=== PATIENT | male | born 1960 | race Two or more races ===

== ENCOUNTER 2017-03-24 15:21 | Inpatient (IN) | payer MEDICAID ==
[~2017-03-24] VITALS: Ht 167.6 cm; Wt 97.5 kg
--- NOTE | 2017-03-24 15:16 | Emergency Room Report ---
History of Present Illness General Source: Patient, EMS Present Illness HPI Patient presents with dizziness, nausea and protracted vomiting. Ringing in both ears. It started out an hour before calling paramedics. They gave him Zofran on the way in. He still feels nauseated. He also is diaphoretic. EKG was done in the field which showed sinus rhythm with no acute changes. The patient is a history of hypertension and has been noncompliant with his medication. He denies chest pain, fever, cough, dyspnea or rashes. He's never felt this way before. Denies diabetes. No sore throat, or ear pain. No recent head trauma. No ill contacts or recent travel. No alcohol. Allergies: Coded Allergies: No Known Allergies (Unverified , 03/24/17) Patient History Social History: Denies: smoking Social History Narrative Review of Systems All Other Systems: negative except mentioned in HPI Physical Exam Vital Signs Date Time Temp Pulse Resp B/P (MAP) Pulse Ox O2 Delivery O2 Flow Rate FiO2 03/24/17 15:19 83 18 182/100 98 Room Air 03/24/17 16:05 2.0 03/24/17 21:00 21 03/25/17 04:27 97.8 Sp02 EP Interpretation: reviewed, normal General Appearance: well appearing, no apparent distress, GCS 15 Head: normocephalic Eyes: bilateral eye normal inspection, bilateral eye PERRL, bilateral eye abnormal EOM - nystagmus ENT: moist mucus membranes, other - cerumen bilat Neck: supple Respiratory: lungs clear, normal breath sounds Cardiovascular #1: regular rate, rhythm Cardiovascular #2: 2+ radial (R) Gastrointestinal: normal inspection, normal bowel sounds, non tender, no mass, non-distended Musculoskeletal: back normal, gait/station normal, normal range of motion Neurologic: alert, oriented x3, motor strength/tone normal, DTRs symmetric, sensory intact, speech normal, other - F-N nearly normal, unable to ambulate due to vertigo Psychiatric: other - ill Skin: diaphoresis Medical Decision Making Diagnostic Impression: Primary Impression: Vertigo Additional Impressions: Ataxia Vomiting Qualified Codes: R11.14 - Bilious vomiting ER Course The patient presents with dizziness. Differential includes labyrinthitis, vertigo, cerebellar pathology, Mnire's disease amongst others. He appears ill at this time and is diaphoretic. We need to exclude cardiac cause. The patient will be on a cardiac cath lab technologist. Evaluation will be with CT the head, chest x-ray and labs and EKG I. The patient be treated with IV Phenergan, Benadryl and Ativan.(Reglan was ordered but is not available.) Prehospital EKG somewhat re-assuring. EKG without injury/ectopy. CXR unremarkable. Labs with elevated glucose and WBC. CT no bleed. Improved and not vomiting. Attempted to ambulate - unsteady on feet and + Romberg. Admit telemetry Dr. Shaw. Needs continued observation and neurologic evaluation with possible MRI. Laboratory Tests Test 03/24/17 16:25 White Blood Count 11.5 K/UL (4.8-10.8) H Red Blood Count 5.09 M/UL (4.70-6.10) Hemoglobin 14.4 G/DL (14.2-18.0) Hematocrit 44.7 % (42.0-52.0) Mean Corpuscular Volume 88 FL (80-99) Mean Corpuscular Hemoglobin 28.2 PG (27.0-31.0) Mean Corpuscular Hemoglobin Concent 32.1 G/DL (32.0-36.0) Red Cell Distribution Width 11.3 % (11.6-14.8) L Platelet Count 237 K/UL (150-450) Mean Platelet Volume 8.9 FL (6.5-10.1) Neutrophils (%) (Auto) 80.3 % (45.0-75.0) H Lymphocytes (%) (Auto) 15.4 % (20.0-45.0) L Monocytes (%) (Auto) 3.3 % (1.0-10.0) Eosinophils (%) (Auto) 0.2 % (0.0-3.0) Basophils (%) (Auto) 0.8 % (0.0-2.0) Prothrombin Time 9.6 SEC (9.30-11.50) Prothrombin Time INR 0.9 (0.9-1.1) PTT 22 SEC (23-33) L Sodium Level 142 MMOL/L (136-145) Potassium Level 3.6 MMOL/L (3.5-5.1) Chloride Level 106 MMOL/L (98-107) Carbon Dioxide Level 20 MMOL/L (21-32) L Anion Gap 16 mmol/L (5-15) H Blood Urea Nitrogen 17 mg/dL (7-18) Creatinine 1.0 MG/DL (0.55-1.30) Estimate Glomerular Filtration Rate > 60 mL/min (>60) Glucose Level 226 MG/DL (74-106) H Calcium Level 9.1 MG/DL (8.5-10.1) Total Bilirubin 0.4 MG/DL (0.2-1.0) Aspartate Amino Transferase (AST) 32 U/L (15-37) Alanine Aminotransferase (ALT) 47 U/L (12-78) Alkaline Phosphatase 71 U/L (46-116) Total Creatine Kinase 150 U/L (26-308) Troponin I 0.000 ng/mL (0.000-0.056) Pro-B-Type Natriuretic Peptide 35 pg/mL (0-125) Total Protein 7.5 G/DL (6.4-8.2) Albumin 4.0 G/DL (3.4-5.0) Globulin 3.5 g/dL Albumin/Globulin Ratio 1.1 (1.0-2.7) EKG Diagnostic Results Rate: normal Rhythm: NSR ST Segments: no acute changes Rhythm Strip Diag. Results EP Interpretation: yes Rhythm: NSR, no PVC's, no ectopy Chest X-Ray Diagnostic Results Chest X-Ray Diagnostic Results : Chest X-Ray Ordered: Yes # of Views/Limited/Complete: 1 View Indication: Other Interpretation: no consolidation, no effusion, no pneumothorax, no acute cardiopulmonary disease Impression: No acute disease Electronically Signed by: Denis Chou MD CT/MRI/US Diagnostic Results CT/MRI/US Diagnostic Results : Imaging Test Ordered: head Impression no bleed or apparent CVA Last Vital Signs Date Time Temp Pulse Resp B/P (MAP) Pulse Ox O2 Delivery O2 Flow Rate FiO2 03/25/17 04:27 97.8 68 18 150/82 99 Room Air 03/24/17 21:00 21 03/24/17 20:00 2.0 Status: improved Disposition: ADMITTED INPATIENT Condition: Serious Denis Chou M.D. Mar 24, 2017 15:16
[~2017-03-24 15:21] MED LIST: DiphenhydrAMINE 50mg/ml Inj IVP ONE; LORazepam Inj 2mg/ml 1ml IV ONE
[2017-03-24] MEDS ORDERED: Tubing IV Cassette IV ONE (15:45)
[2017-03-24 16:00] VITALS: BP 145/62
[2017-03-24 16:05] VITALS: BP 145/62
--- NOTE | 2017-03-24 16:11 | Diagnostic Imaging Report ---
Indication: Dyspnea Comparison: None A single view chest radiograph was obtained. Findings: Cardiomediastinal appearance is within normal limits for age. Pulmonary vascularity is appropriate. The diaphragmatic contour is smooth and costophrenic angles are sharp. No pleural effusions are identified. The bones are unremarkable. Impression: No acute findings Note the study is limited by lordotic projection angle
--- NOTE | 2017-03-24 16:38 | Diagnostic Imaging Report ---
Indication: Dizziness headache Technique: Contiguous 5 mm thick transaxial imaging of the head obtained in a Siemens Sensation [address] scanner. Soft tissue and bone windows generated. Automatic Exposure Control was utilized. Total Dose length Product (DLP): [address] Dose Index Volume (CTDIvol): 0.15, 70.38 mGy Comparison: none Findings: The size and configuration of the cortical sulci, basal cisterns, and ventricles are within normal limits for age. There is no mass effect, midline shift, or edema identified. There is no evidence of acute hemorrhage or abnormal intra-axial or extra-axial fluid collections. The bones and soft tissues are unremarkable. Impression: No mass effect, edema or acute bleed. The CT scanner at [facility] is accredited by the [employer] and the scans are performed using dose optimization techniques as appropriate to a performed exam including Automatic Exposure control.
[2017-03-24 16:40] LABS: BASOPHILS % (AUTO) 0.8 % (0.0-2.0); EOSINOPHILS % (AUTO) 0.2 % (0.0-3.0); HEMATOCRIT 44.7 % (42.0-52.0); HEMOGLOBIN 14.4 G/DL (14.2-18.0); LYMPHOCYTES % (AUTO) 15.4 % (20.0-45.0); MEAN CORPUSCULAR VOLUME 88 FL (80-99); MONOCYTES % (AUTO) 3.3 % (1.0-10.0); NEUTROPHILS % (AUTO) 80.3 % (45.0-75.0); PLATELET COUNT 237 K/UL (150-450); RED BLOOD COUNT 5.09 M/UL (4.70-6.10); RED CELL DISTRIBUTION WIDTH 11.3 % (11.6-14.8); WHITE BLOOD COUNT 11.5 K/UL (4.8-10.8)
[2017-03-24 16:54] LABS: ANION GAP 16 mmol/L (5-15); BLOOD UREA NITROGEN 17 mg/dL (7-18); CALCIUM 9.1 MG/DL (8.5-10.1); CARBON DIOXIDE 20 MMOL/L (21-32); CHLORIDE 106 MMOL/L (98-107); INR 0.9 (0.9-1.1); POTASSIUM 3.6 MMOL/L (3.5-5.1); SODIUM 142 MMOL/L (136-145)
[2017-03-24 17:05] LABS: ALANINE AMINOTRANSFERASE 47 U/L (12-78); ALBUMIN/GLOBULIN RATIO 1.1 (1.0-2.7); ALKALINE PHOSPHATASE 71 U/L (46-116); ASPARTATE AMINO TRANSFERASE 32 U/L (15-37); BILIRUBIN,TOTAL 0.4 MG/DL (0.2-1.0); CREATINE KINASE 150 U/L (26-308)
[2017-03-24 18:00] VITALS: BP 167/80
[2017-03-24] MEDS ORDERED: DOCUSATE SODIU100 MG ORAL (18:26)
[2017-03-24] MEDS ORDERED: FLUTICASONE PRO16 G1 NASAL (18:32)
[2017-03-24] MEDS ORDERED: LEVOFLOXACIN500 MG ORAL (18:32)
[2017-03-24] MEDS ORDERED: OMEPRAZOLE20 M2 ORAL (18:35)
[2017-03-24] MEDS ORDERED: [UNRECOGNIZED DRUG - OTHER] IR (18:57)
[2017-03-24] MEDS ORDERED: MUCINEX600 MG PO (18:57)
[2017-03-24] MEDS ORDERED: PROMETHAZINE-C118 M1 ORAL (18:57)
[2017-03-24] MEDS ORDERED: WOMEN'S DAILY1 EAC2 PO (18:57)
[2017-03-24] MEDS ORDERED: ASCORBIC ACID500 MG ORAL (18:57)
[2017-03-24] MEDS ORDERED: LORATADINE10 M3 PO (18:57)
[2017-03-24] MEDS ORDERED: NYSTATIN-TRIAMC15 G2 TP (19:06)
[2017-03-24] MEDS ORDERED: ACETAMINOPHEN325 M1 ORAL (19:06)
[2017-03-24] MEDS ORDERED: DUONEB 0.5-3(2.53 ML HHN (19:06)
[2017-03-24 20:00] VITALS: BP 159/81
[2017-03-24 21:00] VITALS: BP 167/83
[2017-03-24 22:30] VITALS: BP 152/84
[2017-03-24] MEDS ORDERED: Albuterol/Ipratropium 3ml neb HHN PRN (23:45)
[2017-03-24] MEDS ORDERED: Promethazine/Codeine 5ml UD ORAL PRN (23:45)
[2017-03-24] MEDS ORDERED: guaiFENesin ER 600mg tab ORAL PRN (23:45)
[2017-03-25 04:27] VITALS: BP 150/82
[2017-03-25 08:00] VITALS: BP 155/87
[2017-03-25 08:28] LABS: BASOPHILS % (AUTO) 1.1 % (0.0-2.0); EOSINOPHILS % (AUTO) 0.5 % (0.0-3.0); LYMPHOCYTES % (AUTO) 21.8 % (20.0-45.0); MEAN CORPUSCULAR VOLUME 88 FL (80-99); MONOCYTES % (AUTO) 5.7 % (1.0-10.0); NEUTROPHILS % (AUTO) 70.9 % (45.0-75.0); PLATELET COUNT 256 K/UL (150-450); RED CELL DISTRIBUTION WIDTH 11.9 % (11.6-14.8); WHITE BLOOD COUNT 9.1 K/UL (4.8-10.8)
[2017-03-25] MEDS: Docusate 100mg cap ORAL SCH ×2 (09:03→18:09)
[2017-03-25] MEDS: Levofloxacin 500mg tab ORAL SCH (09:03)
[2017-03-25] MEDS: Ascorbic Acid 500mg tab ORAL SCH (09:03)
[2017-03-25] MEDS: Acetaminophen 500mg (ES) tab ORAL PRN ×3 (09:40→20:33)
[2017-03-25 10:12] LABS: ALANINE AMINOTRANSFERASE 48 U/L (12-78); ALBUMIN 3.9 G/DL (3.4-5.0); ALBUMIN/GLOBULIN RATIO 1.1 (1.0-2.7); ALKALINE PHOSPHATASE 68 U/L (46-116); ANION GAP 12 mmol/L (5-15); ASPARTATE AMINO TRANSFERASE 24 U/L (15-37); BILIRUBIN,TOTAL 0.9 MG/DL (0.2-1.0); BLOOD UREA NITROGEN 12 mg/dL (7-18); CALCIUM 9.3 MG/DL (8.5-10.1); CARBON DIOXIDE 23 MMOL/L (21-32); CHLORIDE 105 MMOL/L (98-107); CREATININE 0.7 MG/DL (0.55-1.30); POTASSIUM 3.7 MMOL/L (3.5-5.1); SODIUM 140 MMOL/L (136-145)
[2017-03-25] MEDS: Flonase Nasal Inhaler 16gm NASAL SCH (10:17)
--- NOTE | 2017-03-25 11:43 | Neurology Progress Note ---
Objective Physical Exam Last Vital Signs Date Time Temp Pulse Resp B/P (MAP) Pulse Ox O2 Delivery O2 Flow Rate FiO2 03/25/17 08:00 97.5 72 19 155/87 97 Room Air 03/25/17 07:42 21 03/24/17 20:00 2.0 Laboratory Tests Test 03/24/17 16:25 03/25/17 07:35 White Blood Count 11.5 K/UL (4.8-10.8) H 9.1 K/UL (4.8-10.8) Red Blood Count 5.09 M/UL (4.70-6.10) 5.10 M/UL (4.70-6.10) Hemoglobin 14.4 G/DL (14.2-18.0) 15.0 G/DL (14.2-18.0) Hematocrit 44.7 % (42.0-52.0) 45.0 % (42.0-52.0) Mean Corpuscular Volume 88 FL (80-99) 88 FL (80-99) Mean Corpuscular Hemoglobin 28.2 PG (27.0-31.0) 29.4 PG (27.0-31.0) Mean Corpuscular Hemoglobin Concent 32.1 G/DL (32.0-36.0) 33.3 G/DL (32.0-36.0) Red Cell Distribution Width 11.3 % (11.6-14.8) L 11.9 % (11.6-14.8) Platelet Count 237 K/UL (150-450) 256 K/UL (150-450) Mean Platelet Volume 8.9 FL (6.5-10.1) 9.8 FL (6.5-10.1) Neutrophils (%) (Auto) 80.3 % (45.0-75.0) H 70.9 % (45.0-75.0) Lymphocytes (%) (Auto) 15.4 % (20.0-45.0) L 21.8 % (20.0-45.0) Monocytes (%) (Auto) 3.3 % (1.0-10.0) 5.7 % (1.0-10.0) Eosinophils (%) (Auto) 0.2 % (0.0-3.0) 0.5 % (0.0-3.0) Basophils (%) (Auto) 0.8 % (0.0-2.0) 1.1 % (0.0-2.0) Prothrombin Time 9.6 SEC (9.30-11.50) Prothromb Time International Ratio 0.9 (0.9-1.1) Activated Partial Thromboplast Time 22 SEC (23-33) L Sodium Level 142 MMOL/L (136-145) 140 MMOL/L (136-145) Potassium Level 3.6 MMOL/L (3.5-5.1) 3.7 MMOL/L (3.5-5.1) Chloride Level 106 MMOL/L (98-107) 105 MMOL/L (98-107) Carbon Dioxide Level 20 MMOL/L (21-32) L 23 MMOL/L (21-32) Anion Gap 16 mmol/L (5-15) H 12 mmol/L (5-15) Blood Urea Nitrogen 17 mg/dL (7-18) 12 mg/dL (7-18) Creatinine 1.0 MG/DL (0.55-1.30) 0.7 MG/DL (0.55-1.30) Estimat Glomerular Filtration Rate > 60 mL/min (>60) > 60 mL/min (>60) Glucose Level 226 MG/DL (74-106) H 117 MG/DL (74-106) #H Calcium Level 9.1 MG/DL (8.5-10.1) 9.3 MG/DL (8.5-10.1) Total Bilirubin 0.4 MG/DL (0.2-1.0) 0.9 MG/DL (0.2-1.0) Aspartate Amino Transf (AST/SGOT) 32 U/L (15-37) 24 U/L (15-37) Alanine Aminotransferase (ALT/SGPT) 47 U/L (12-78) 48 U/L (12-78) Alkaline Phosphatase 71 U/L (46-116) 68 U/L (46-116) Total Creatine Kinase 150 U/L (26-308) Troponin I 0.000 ng/mL (0.000-0.056) Pro-B-Type Natriuretic Peptide 35 pg/mL (0-125) Total Protein 7.5 G/DL (6.4-8.2) 7.6 G/DL (6.4-8.2) Albumin 4.0 G/DL (3.4-5.0) 3.9 G/DL (3.4-5.0) Globulin 3.5 g/dL 3.7 g/dL Albumin/Globulin Ratio 1.1 (1.0-2.7) 1.1 (1.0-2.7) Impression/Recommendations Recommendations #[id number] NATALYA UGARTE Mar 25, 2017 11:43
[2017-03-25 12:00] VITALS: BP 145/72
[2017-03-25 12:04] LABS: CHOLESTEROL 243 MG/DL (< 200); HDL CHOLESTEROL 51 MG/DL (40-60); TRIGLYCERIDES 200 MG/DL (30-150)
--- NOTE | 2017-03-25 15:05 | Diagnostic Imaging Report ---
Indication: Altered mental status Technique: The head was imaged in a 1.5 Giselle magnet. Sequences obtained include sagittal and axial T1 FLAIR, axial T2 fast spin echo with fat saturation, axial T2 FLAIR, diffusion and ADC map. Comparison: None There is diffusion restriction involving the left cerebellum associated with T2 hyperintense edema. The area of diffusion restriction is fairly large measuring about 5 x 3 cm on transaxial images. There is very mild degree of mass effect on the lower part of the fourth ventricle. There is no evidence of hemorrhage. There is no magnetic susceptibility associated with this. The basal cisterns appear normal. The supratentorial brain is normal in appearance. The ventricles are symmetric. There is no evidence of hydrocephalus. The corpus callosum, sella, osseous bone marrow signal appear normal. IMPRESSION: Acute nonhemorrhagic left cerebellar CVA. Critical value communication. Findings were discussed via telephone to the nurse on 2 E. 2:58, 03/25/2017. The referring physician is in the process of being contacted.
--- NOTE | 2017-03-25 15:48 | Cardiology Report ---
APPROVED REPORT EKG Measurement Heart [id number] VT [id number] Normal sinus rhythm Normal ECG
[2017-03-25 16:00] VITALS: BP 149/84
--- NOTE | 2017-03-25 16:49 | Neurology Progress Note ---
Objective Physical Exam Last Vital Signs Date Time Temp Pulse Resp B/P (MAP) Pulse Ox O2 Delivery O2 Flow Rate FiO2 03/25/17 16:27 97.6 03/25/17 12:00 72 03/25/17 12:00 20 145/72 97 Room Air 03/25/17 07:42 21 03/24/17 20:00 2.0 Laboratory Tests Test 03/25/17 07:35 White Blood Count 9.1 K/UL (4.8-10.8) Red Blood Count 5.10 M/UL (4.70-6.10) Hemoglobin 15.0 G/DL (14.2-18.0) Hematocrit 45.0 % (42.0-52.0) Mean Corpuscular Volume 88 FL (80-99) Mean Corpuscular Hemoglobin 29.4 PG (27.0-31.0) Mean Corpuscular Hemoglobin Concent 33.3 G/DL (32.0-36.0) Red Cell Distribution Width 11.9 % (11.6-14.8) Platelet Count 256 K/UL (150-450) Mean Platelet Volume 9.8 FL (6.5-10.1) Neutrophils (%) (Auto) 70.9 % (45.0-75.0) Lymphocytes (%) (Auto) 21.8 % (20.0-45.0) Monocytes (%) (Auto) 5.7 % (1.0-10.0) Eosinophils (%) (Auto) 0.5 % (0.0-3.0) Basophils (%) (Auto) 1.1 % (0.0-2.0) Sodium Level 140 MMOL/L (136-145) Potassium Level 3.7 MMOL/L (3.5-5.1) Chloride Level 105 MMOL/L (98-107) Carbon Dioxide Level 23 MMOL/L (21-32) Anion Gap 12 mmol/L (5-15) Blood Urea Nitrogen 12 mg/dL (7-18) Creatinine 0.7 MG/DL (0.55-1.30) Estimat Glomerular Filtration Rate > 60 mL/min (>60) Glucose Level 117 MG/DL (74-106) #H Calcium Level 9.3 MG/DL (8.5-10.1) Total Bilirubin 0.9 MG/DL (0.2-1.0) Aspartate Amino Transf (AST/SGOT) 24 U/L (15-37) Alanine Aminotransferase (ALT/SGPT) 48 U/L (12-78) Alkaline Phosphatase 68 U/L (46-116) Total Protein 7.6 G/DL (6.4-8.2) Albumin 3.9 G/DL (3.4-5.0) Globulin 3.7 g/dL Albumin/Globulin Ratio 1.1 (1.0-2.7) Triglycerides Level 200 MG/DL (30-150) H Cholesterol Level 243 MG/DL (< 200) H LDL Cholesterol 175 mg/dL (<100) H HDL Cholesterol 51 MG/DL (40-60) Cholesterol/HDL Ratio 4.8 (3.3-4.4) H Vitamin B12 Level 593 PG/ML (193-986) Impression/Recommendations Problems: (1) Acute left cerebellar ischemic stroke (2) HTN (hypertension), malignant (3) Hyperlipidemia Status: unchanged Recommendations #[id number] reeval at % PM NATALYA UGARTE Mar 25, 2017 16:49
--- NOTE | 2017-03-25 17:00 | History and Physical Report ---
DATE OF ADMISSION: 03/24/2017 HISTORY OF PRESENT ILLNESS: The patient is here for vertigo, unable to ambulate. The patient was trying to get out of the car and became weak and had difficulty ambulating with an acute onset and the patient also had diaphoresis and also had complained of headache. The patient has history of hypertension. He stopped taking his blood pressure medication 2 weeks ago. The patient is also is prediabetic and takes cholesterol pill Lipitor namely for hyperlipidemia. The patient also had complained of nausea, vomiting as well as vertigo. Denies diplopia. Denies fever or chills. Denies cough. Denies any prodrome of viral syndrome. PAST MEDICAL HISTORY: Significant for hypertension, prediabetic, hyperlipidemia, constipation, allergic rhinitis, and GERD. PAST SURGICAL HISTORY: None. MEDICATIONS: Diovan and Lipitor. ALLERGIES: No known allergies. FAMILY HISTORY: Noncontributory. SOCIAL HISTORY: The patient denies history of smoking, alcohol, or illicit drug abuse. REVIEW OF SYSTEMS: HEENT: He does have headache. Denies diplopia. RESPIRATORY: Denies shortness of breath. Denies cough. CARDIOVASCULAR: Denies chest pain. No orthopnea. Does have diaphoresis. EXTREMITIES: Denies any pain. Did have lower extremity weakness while trying to get out of the car yesterday, had difficulty walking, and felt very weak. Denies syncopal episode. PHYSICAL EXAMINATION: VITAL SIGNS: Temperature 97.8, pulse is 68, blood pressure 152/84. HEENT: PERRLA. NECK: Supple. No lymphadenopathy. CHEST: Clear to auscultation. GASTROINTESTINAL: Soft, nontender, nondistended. CARDIOVASCULAR: Regular rate and rhythm. ABDOMEN: Soft. No organomegaly. EXTREMITIES: No edema. Reflexes on both sides. Moves all 4 extremities. NEUROLOGIC: Cranial nerves II through XII intact. No motor weakness noted at this point. LABORATORY DATA: According to the ER doctor, CT scan was negative on the preliminary report. WBC of 11.5, hemoglobin 14.4, platelet of 237,000. Sodium 142, potassium 3.6, BUN of 17, creatinine of 1, and glucose of 226. ASSESSMENT AND PLAN: 1. Lower extremity weakness, rule out cerebrovascular accident. 2. Vertigo, rule out positional vertigo. 3. Also, we need to find out why the patient is having vertigo. We will also need to rule out cerebrovascular accident. For those reasons, I have consulted Dr. Lon Madison, Dr. Neeraj Lawrence, and Dr. Dinh for elevated blood pressure management as well as borderline low potassium. Morenita Shaw M.D. DR: ROX JOB#: [id number] CC:
[2017-03-25 20:00] VITALS: BP 159/95
--- NOTE | 2017-03-25 22:33 | Consultation ---
DATE OF CONSULTATION: 03/25/2017 NEUROLOGICAL CONSULTATION CONSULTING PHYSICIAN: Neeraj Lawrence M.D. REQUESTING PHYSICIAN: Morenita Shaw M.D. HISTORY OF PRESENT ILLNESS: This is a 57-year-old man, was seen in neurological consultation to evaluate new onset of acute vertigo. According to the patient, he is suffering from hypertension, but he stopped taking medications for some time, not sure if he needed. He was in the usual state of health, when yesterday morning as he was getting out of the car, he had a very sudden onset of severe vertigo, weakness of legs, and headaches. He felt that he is going to fall, so he had to sit down, continue with the nausea. Paramedics were called to the scene. He was brought to the emergency room complaining of dizziness, nausea, and protracted vomiting with ringing in his both ears. The patient received Zofran, which makes him to feel much better, but he still remained with nausea and diaphoresis. EKG in the field revealed sinus rhythm with no acute changes. On arrival, his blood pressure was 182/100, heart rate of 83, and he was afebrile. His [place] coma scale was 15. He was unable to ambulate. His exam was unremarkable except being unable to ambulate due to severe vertigo. His initial workup included laboratory studies with WBC 11.5, otherwise normal CBC study, normal coagulation panel, chemistry panel except blood sugar of 200.6, anion gap of 16, and normal troponin. His CAT scan of the brain revealed no acute intracranial abnormalities, and his chest x-ray, no acute findings as well. MEDICATIONS: The patient started treatment with hydration, given normal saline intravenous, started on aspirin, Tylenol as needed, Benadryl as needed, Mucinex, intravenous fluids, antibiotics, and Phenergan With Codeine for cough. Since admission till present, his condition somewhat improved. PAST MEDICAL HISTORY: History of hypertension. No other major medical problems. Prior to admission included Mucinex, levofloxacin, promethazine, and albuterol. FAMILY HISTORY: Noncontributory. REVIEW OF SYMPTOMS: Today feels much better, but still has slight dizziness and vertigo especially when getting up and ambulating. Somewhat unsteady gait and nausea. Denies hearing loss. No coughing, sneezing. No fevers. Denies chest pain or palpitations. No respiratory problems. Denies abdominal pain or discomfort. No urine or bowel incontinence. SOCIAL HISTORY: The patient works as a helper, labor for a big store. He denies smoking. No drug abuse, but indicates using alcohol on the weekends. PHYSICAL EXAMINATION: GENERAL: Well-developed, well-nourished male, not in acute distress. VITAL SIGNS: His vital signs now are stable. Blood pressure remained 155/87 and temperature 97.5. HEENT: Normocephalic. No evidence of trauma. Eyes, ears, and throat are clear. NECK: Supple. No meningeal signs. MUSCULOSKELETAL: Unremarkable. No deformities. Peripheral pulses, 1+ symmetric. Sensory exam, no deformities. MENTAL STATUS: Alert and oriented x3 with no evidence of aphasia or apraxia. Cognition is normal. CRANIAL NERVE II: Pupils both responding to light and accommodation. Extraocular movements, full range. No nystagmus noted. CRANIAL NERVE V: Normal corneal responses. No facial asymmetry. Slight positional dizziness with head turns. CRANIAL NERVE IX THROUGH XII: Tongue is in the midline. Symmetric palate elevation. MOTOR EXAMINATION: Motor examination, normal muscle tone and strength in all extremities. No involuntary movement. Deep tendon reflexes 1+ symmetric with downgoing toes on both sides. Sensory exam normal to pinprick light touch. Gait, slightly wobbly. IMPRESSION: 1. Most likely acute labyrinthitis, benign positional vertigo. 2. Hypertension, out of control. DISCUSSION: The patient has normal nonfocal neurological examination except positional dizziness and slightly wobbly gait. Description of event resembles for benign paroxysmal positional vertigo, although cannot completely rule out posterior cerebral artery insufficiency. We will obtain MRI of the brain without contrast. Start on meclizine. Continue with aspirin. Maintain appropriate blood pressure control. Check lipid panel, B12, folate, and thyroid function. Thank you for allowing me to see this interesting patient in neurological consultation. Neeraj Lawrence M.D. DR: LOUISA JOB#: [id number] CC:
[2017-03-25] MEDS ORDERED: Lisinopril 20mg tab ORAL ONE (23:15)
[2017-03-25] MEDS ORDERED: HydrALAZINE 10mg Tab ORAL PRN (23:30)
[2017-03-26] VITALS: BP 139/78
--- NOTE | 2017-03-26 00:02 | Consultation ---
DATE OF CONSULTATION: 03/25/2017 HEAD AND NECK SURGERY/ENT CONSULTATION CONSULTING PHYSICIAN: oLn Madison M.D. REQUESTING PHYSICIAN: Morenita Shaw M.D. INDICATION FOR CONSULTATION: The patient is a 57-year-old male, admitted to the hospital via the emergency room yesterday for extreme vertigo. He was admitted, had an MRI, has a nonhemorrhagic stroke as of this morning, and his vertigo seems to be resolving according to him. MEDICATIONS: Include aspirin, Lipitor, Antivert, vitamin C, Flonase, Levaquin, Tylenol, Phenergan With Codeine, Mucinex, and albuterol. PAST MEDICAL HISTORY: Cholesterol. There was not a history and physical from the primary care doctor on the chart yet, although there is an ER report by Dr. Chou indicating the patient and the patient concurs not a smoker or . ALLERGIES: No known drug allergies. PHYSICAL EXAMINATION: VITAL SIGNS: Height 167.64 cm, 97.552 kg, and BMI 34.7 kg/m2. HEENT: Eyes, PERRLA. EOMI. Lips, tongue, pharynx, and neck all normal. Ears, positive light reflex, normal canal. ASSESSMENT: This appears to be a nonhemorrhagic stroke or a viral issue. I am sure if he has older scans. PLAN: He is being seen by a neurologist, which is appropriate and being seen by a remedial project manager as well. From an ENT standpoint, there is no further care indicated and if there is further ENT care, please have him to see an ENT, who is [facility]. There are none at this hospital to my knowledge and I am not one either. Thank you very much for asking my opinion in the care and treatment of this patient. Lon Madison M.D. DR: ANTONELLA JOB#: [id number] CC: ARASH
[2017-03-26 02:20] LABS: APPEARANCE,URINE CLEAR; BILIRUBIN, URINE NEGATIVE (NEGATIVE); COLOR,URINE PALE YELLOW; GLUCOSE, URINE (UA) NEGATIVE (NEGATIVE); KETONES,URINE NEGATIVE (NEGATIVE); LEUKOCYTE ESTERASE ,URINE NEGATIVE (NEGATIVE); NITRITE,URINE NEGATIVE (NEGATIVE); PH,URINE 7 (4.5-8.0); PROTEIN,URINE NEGATIVE (NEGATIVE); UROBILINOGEN,URINE NORMAL MG/DL (0.0-1.0)
[2017-03-26 04:00] VITALS: BP 129/90
[2017-03-26] MEDS: Acetaminophen 500mg (ES) tab ORAL PRN ×3 (04:29→17:49)
[2017-03-26 08:00] VITALS: BP 149/85
[2017-03-26 09:14] LABS: ALANINE AMINOTRANSFERASE 36 U/L (12-78); ALBUMIN 3.6 G/DL (3.4-5.0); ALKALINE PHOSPHATASE 61 U/L (46-116); ANION GAP 10 mmol/L (5-15); ASPARTATE AMINO TRANSFERASE 22 U/L (15-37); BILIRUBIN,TOTAL 0.8 MG/DL (0.2-1.0); BLOOD UREA NITROGEN 11 mg/dL (7-18); CARBON DIOXIDE 25 MMOL/L (21-32); CHLORIDE 106 MMOL/L (98-107); POTASSIUM 3.7 MMOL/L (3.5-5.1); SODIUM 141 MMOL/L (136-145)
[2017-03-26] MEDS: Aspirin Baby 81mg ORAL SCH (10:03)
[2017-03-26] MEDS: Levofloxacin 500mg tab ORAL SCH (10:04)
[2017-03-26] MEDS: Docusate 100mg cap ORAL SCH ×2 (10:04→17:49)
[2017-03-26] MEDS: Ascorbic Acid 500mg tab ORAL SCH (10:04)
[2017-03-26] MEDS: Lisinopril 2.5mg tab ORAL SCH (10:05)
[2017-03-26] MEDS: Flonase Nasal Inhaler 16gm NASAL SCH (10:09)
[2017-03-26 12:00] VITALS: BP 138/86
--- NOTE | 2017-03-26 13:44 | Neurology Progress Note ---
Interim History Interim History ROS Limited/Unobtainable: No Complaints: still positional dizziness mild occipital NEIL Events: stable Objective Physical Exam Last Vital Signs Date Time Temp Pulse Resp B/P (MAP) Pulse Ox O2 Delivery O2 Flow Rate FiO2 03/26/17 12:00 97.9 64 20 138/86 99 Room Air 03/26/17 06:38 3.0 03/25/17 19:30 21 Laboratory Tests Test 03/26/17 01:15 03/26/17 07:05 Urine Color Pale yellow Urine Appearance Clear Urine pH 7 (4.5-8.0) Urine Specific [place] 1.010 (1.005-1.035) Urine Protein Negative (NEGATIVE) Urine Glucose (UA) Negative (NEGATIVE) Urine Ketones Negative (NEGATIVE) Urine Occult Blood Negative (NEGATIVE) Urine Nitrite Negative (NEGATIVE) Urine Bilirubin Negative (NEGATIVE) Urine Urobilinogen Normal MG/DL (0.0-1.0) Urine Leukocyte Esterase Negative (NEGATIVE) Urine RBC 0 /HPF (0 - 0) Urine WBC 0 /HPF (0 - 0) Urine Squamous Epithelial Cells Few /LPF (NONE/OCC) Urine Bacteria Few /HPF (NONE) Sodium Level 141 MMOL/L (136-145) Potassium Level 3.7 MMOL/L (3.5-5.1) Chloride Level 106 MMOL/L (98-107) Carbon Dioxide Level 25 MMOL/L (21-32) Anion Gap 10 mmol/L (5-15) Blood Urea Nitrogen 11 mg/dL (7-18) Creatinine 1.0 MG/DL (0.55-1.30) Estimat Glomerular Filtration Rate > 60 mL/min (>60) Glucose Level 121 MG/DL (74-106) H Hemoglobin A1c 5.9 % (4.3-6.0) Uric Acid 5.4 MG/DL (2.6-7.2) Calcium Level 9.0 MG/DL (8.5-10.1) Phosphorus Level 3.0 MG/DL (2.5-4.9) Magnesium Level 1.9 MG/DL (1.8-2.4) Total Bilirubin 0.8 MG/DL (0.2-1.0) Aspartate Amino Transf (AST/SGOT) 22 U/L (15-37) Alanine Aminotransferase (ALT/SGPT) 36 U/L (12-78) Alkaline Phosphatase 61 U/L (46-116) C-Reactive Protein, Quantitative < 0.4 mg/dL (0.00-0.90) Pro-B-Type Natriuretic Peptide 22 pg/mL (0-125) Total Protein 7.1 G/DL (6.4-8.2) Albumin 3.6 G/DL (3.4-5.0) Globulin 3.5 g/dL Albumin/Globulin Ratio 1.0 (1.0-2.7) Folate 15.8 NG/ML (8.6-58.9) Thyroid Stimulating Hormone (TSH) 2.671 uiU/mL (0.358-3.740) General: well developed, well nourished, no acute distress Head: normocophalic, atraumatic Neck: no rigidity Neurologic Exam Mental Status: awake, alert, oriented x4, normal cognition, good mathematical skills, normal recent memory, normal remote memory, preserved visuospatial function Speech: normal speech, no dysarthia Language: normal language, no aphasia Cranial Nerve II: fundus normal, visual godinez, no papilledema Cranial Nerves III, IV, : PERRLA, EOMI, pupils Cranial Nerve V: normal facial sensations, temporales function normal, masseters function normal, pterygoids function normal Cranial Nerve VII: no facial asymmetry, normal facial expressions Cranial Nerve VIII: normal hearing, no nystagmus, other - dizzy when getting up Cranial Nerve IX: gag response Cranial Nerve X: no voice hoarseness Cranial Nerve XI: SCM symmetric, trapezii function normal Cranial Nerve XII: tongue midline, no tongue atrophy/fasciculations Motor System: normal muscle tone, strength 5/5, no involuntary movement, no muscle wasting Sensory: normal pinprick, normal light touch Coordination: normal finger to nose bilaterally, other - +romberg Deep Tendon Reflexes: 1+ bicep (L), 1+ bicep (R), 1+ tricep (L), 1+ tricep (R) , 1+ brachioradialis (L), 1+ brachioradialis (R), 1+ knee (L), 1+ knee (R), 1+ ankle (L), 1+ ankle (R) Reflexes: flexor plantar (L), flexor plantar (R) Stance: other Gait: other - sl wabbly Impression/Recommendations Problems: (1) Acute left cerebellar ischemic stroke (2) HTN (hypertension), malignant (3) Hyperlipidemia Status: unchanged Recommendations #[id number] reeval at 5 PMdone now neuro stable ------cont with asa/plavix/statins NATALYA Abad Mar 26, 2017 13:44
[2017-03-26 16:00] VITALS: BP 147/91
--- NOTE | 2017-03-26 16:03 | Consultation ---
Consult Note Consult Note asked to eval for Hypertension management- Patient presents with dizziness, nausea and protracted vomiting. Ringing in both ears. It started out an hour before calling paramedics. They gave him Zofran on the way in. He still feels nauseated. He also is diaphoretic. EKG was done in the field which showed sinus rhythm with no acute changes. The patient is a history of hypertension and has been noncompliant with his medication. He denies chest pain, fever, cough, dyspnea or rashes. He's never felt this way before. Denies diabetes. No sore throat, or ear pain. No recent head trauma. No ill contacts or recent travel. No alcohol. patient examined data reviewed discussed with RN . Assessment/Plan IMP: (1) Acute left cerebellar ischemic stroke ( MRI: Acute nonhemorrhagic left cerebellar CVA.) (2) HTN (hypertension), malignant (3) Hyperlipidemia Plan; BP meds to keep BP around 140 syst for now- Statins- Per Neuro KATHERINE COOPER Mar 26, 2017 16:03
[2017-03-26 20:00] VITALS: BP_SYST 127; BP_SYST 144; BP_DIAS 58; BP_DIAS 91
[2017-03-26] MEDS: Meclizine 25mg tab ORAL PRN (20:09)
--- NOTE | 2017-03-26 23:09 | General Progress Note ---
Assessment/Plan Problem List: (1) Vomiting ICD Codes: R11.10 - Vomiting, unspecified SNOMED: 335387908 Qualifiers: Qualified Codes: R11.14 - Bilious vomiting (2) Vertigo ICD Codes: R42 - Dizziness and giddiness SNOMED: 192045394 (3) HTN (hypertension), malignant ICD Codes: I10 - Essential (primary) hypertension SNOMED: 63303214 Status: progressing Assessment/Plan no vomiting afebrile no sob no vertigo acute cva Subjective ROS Limited/Unobtainable: Yes Allergies: Coded Allergies: No Known Allergies (Unverified , 03/24/17) Objective Last 24 Hour Vital Signs Date Time Temp Pulse Resp B/P (MAP) Pulse Ox O2 Delivery O2 Flow Rate FiO2 03/26/17 20:10 90 18 Room Air 03/26/17 20:00 76 03/26/17 20:00 98.4 74 18 144/91 99 03/26/17 16:00 98.4 72 20 147/91 96 Room Air 03/26/17 16:00 73 03/26/17 12:00 97.9 64 20 138/86 99 Room Air 03/26/17 12:00 67 03/26/17 10:05 149/85 03/26/17 08:00 97.7 71 20 149/85 99 Room Air 03/26/17 08:00 67 03/26/17 06:38 88 18 Nasal Cannula 3.0 03/26/17 05:28 97.9 03/26/17 04:00 97.7 63 20 129/90 98 Room Air 03/26/17 04:00 60 03/26/17 00:00 97.9 60 20 139/78 98 Room Air 03/26/17 00:00 60 03/25/17 23:28 159/95 Intake and Output 03/25/17 03/26/17 19:00 07:00 Intake Total 550 ml 200 ml Balance 550 ml 200 ml Intake Oral 550 ml 200 ml # Voids 2 Laboratory Tests 03/26/17 01:15: Urine Color Pale yellow, Urine Appearance Clear, Urine pH 7, Urine Specific [place] 1.010, Urine Protein Negative, Urine Glucose (UA) Negative, Urine Ketones Negative, Urine Occult Blood Negative, Urine Nitrite Negative, Urine Bilirubin Negative, Urine Urobilinogen Normal, Urine Leukocyte Esterase Negative , Urine RBC 0, Urine WBC 0, Urine Squamous Epithelial Cells Few, Urine Bacteria Few 03/26/17 07:05: Sodium Level 141, Potassium Level 3.7, Chloride Level 106, Carbon Dioxide Level 25, Anion Gap 10, Blood Urea Nitrogen 11, Creatinine 1.0, Estimat Glomerular Filtration Rate > 60, Glucose Level 121H, Hemoglobin A1c 5.9, Uric Acid 5.4, Calcium Level 9.0, Phosphorus Level 3.0, Magnesium Level 1.9, Total Bilirubin 0.8, Aspartate Amino Transf (AST/SGOT) 22, Alanine Aminotransferase (ALT/SGPT) 36, Alkaline Phosphatase 61, C-Reactive Protein, Quantitative < 0.4, Pro-B-Type Natriuretic Peptide 22, Total Protein 7.1, Albumin 3.6, Globulin 3.5, Albumin/ Globulin Ratio 1.0, Folate 15.8, Thyroid Stimulating Hormone (TSH) 2.671 Height (Feet): 5 Height (Inches): 6.00 Weight (Pounds): 215 Morenita Shaw MD Mar 26, 2017 23:09
[2017-03-27] VITALS (7 sets, daily range): BP systolic 129–154; BP diastolic 52–92
[2017-03-27] MEDS: Docusate 100mg cap ORAL SCH ×2 (08:26→17:15)
[2017-03-27] MEDS: Ascorbic Acid 500mg tab ORAL SCH (08:26)
[2017-03-27] MEDS: Levofloxacin 500mg tab ORAL SCH (08:26)
[2017-03-27] MEDS: Aspirin Baby 81mg ORAL SCH (08:27)
[2017-03-27] MEDS: Lisinopril 2.5mg tab ORAL SCH (08:28)
[2017-03-27] MEDS: Acetaminophen 500mg (ES) tab ORAL PRN (08:40)
[2017-03-27] MEDS: Flonase Nasal Inhaler 16gm NASAL SCH ×2 (09:00→15:36)
--- NOTE | 2017-03-27 09:54 | Nephrology Progress Note ---
Assessment/Plan Problem List: (1) HTN (hypertension), malignant (2) Acute left cerebellar ischemic stroke (3) Hyperlipidemia Assessment IMP: (1) Acute left cerebellar ischemic stroke ( MRI: Acute nonhemorrhagic left cerebellar CVA.) (2) HTN (hypertension), malignant (3) Hyperlipidemia Plan Plan; BP meds to keep BP around 140 syst for now- Statins- Per Neuro Subjective ROS Limited/Unobtainable: No Constitutional: Reports: malaise Objective Objective Last 24 Hour Vital Signs Date Time Temp Pulse Resp B/P (MAP) Pulse Ox O2 Delivery O2 Flow Rate FiO2 03/27/17 08:28 150/92 03/27/17 04:00 98.0 66 21 136/84 95 Room Air 03/27/17 04:00 64 03/27/17 00:00 97.6 69 18 140/89 90 03/27/17 00:00 67 03/26/17 20:10 90 18 Room Air 03/26/17 20:00 76 03/26/17 20:00 98.4 74 18 144/91 99 03/26/17 16:00 98.4 72 20 147/91 96 Room Air 03/26/17 16:00 73 03/26/17 12:00 97.9 64 20 138/86 99 Room Air 03/26/17 12:00 67 03/26/17 10:05 149/85 Intake and Output 03/26/17 03/27/17 19:00 07:00 Intake Total 740 ml 240 ml Output Total 350 ml Balance 390 ml 240 ml Intake Oral 740 ml 240 ml Output Urine Total 350 ml # Voids 1 3 Height (Feet): 5 Height (Inches): 6.00 Weight (Pounds): 215 General Appearance: no apparent distress Neurologic: other - per neuro Objective no change KATHERINE COOPER Mar 27, 2017 09:54
[2017-03-27] MEDS ORDERED: HydrALAZINE 10mg Tab ORAL PRN ×2 (10:00→21:00)
[2017-03-27 15:28] LABS: EOSINOPHILS % (AUTO) 0.5 % (0.0-3.0); HEMATOCRIT 46.7 % (42.0-52.0); HEMOGLOBIN 15.6 G/DL (14.2-18.0); MEAN CORPUSCULAR VOLUME 87 FL (80-99); NEUTROPHILS % (AUTO) 68.4 % (45.0-75.0); PLATELET COUNT 258 K/UL (150-450); RED BLOOD COUNT 5.34 M/UL (4.70-6.10); RED CELL DISTRIBUTION WIDTH 11.6 % (11.6-14.8); WHITE BLOOD COUNT 10.1 K/UL (4.8-10.8)
[2017-03-27] MEDS: Meclizine 25mg tab ORAL PRN (15:36)
[2017-03-27 15:38] LABS: ANION GAP 9 mmol/L (5-15); BLOOD UREA NITROGEN 13 mg/dL (7-18); CALCIUM 9.5 MG/DL (8.5-10.1); CARBON DIOXIDE 24 MMOL/L (21-32); CHLORIDE 106 MMOL/L (98-107); POTASSIUM 4.2 MMOL/L (3.5-5.1); SODIUM 139 MMOL/L (136-145)
--- NOTE | 2017-03-27 20:55 | General Progress Note ---
Assessment/Plan Problem List: (1) Vomiting ICD Codes: R11.10 - Vomiting, unspecified SNOMED: 635983771 Qualifiers: Qualified Codes: R11.14 - Bilious vomiting (2) Vertigo ICD Codes: R42 - Dizziness and giddiness SNOMED: 744312792 (3) HTN (hypertension), malignant ICD Codes: I10 - Essential (primary) hypertension SNOMED: 15892849 Status: progressing Assessment/Plan still ataxic headache acute cva Subjective ROS Limited/Unobtainable: Yes Allergies: Coded Allergies: No Known Allergies (Unverified , 03/24/17) Subjective headache Objective Last 24 Hour Vital Signs Date Time Temp Pulse Resp B/P (MAP) Pulse Ox O2 Delivery O2 Flow Rate FiO2 03/27/17 20:08 70 18 Room Air 03/27/17 20:00 98.4 72 21 154/79 99 Room Air 03/27/17 16:00 79 03/27/17 16:00 96.9 79 18 129/70 100 Room Air 03/27/17 14:00 94 03/27/17 12:00 97.0 78 18 148/80 100 Room Air 03/27/17 08:28 150/92 03/27/17 08:00 84 03/27/17 08:00 98.1 85 18 150/92 97 Room Air 03/27/17 04:00 98.0 66 21 136/84 95 Room Air 03/27/17 04:00 64 03/27/17 00:00 97.6 69 18 140/89 90 03/27/17 00:00 67 Intake and Output 03/26/17 03/27/17 19:00 07:00 Intake Total 740 ml 240 ml Output Total 350 ml Balance 390 ml 240 ml Intake Oral 740 ml 240 ml Output Urine Total 350 ml # Voids 1 3 Laboratory Tests 03/27/17 15:10: White Blood Count 10.1, Red Blood Count 5.34, Hemoglobin 15.6, Hematocrit 46.7, Mean Corpuscular Volume 87, Mean Corpuscular Hemoglobin 29.2, Mean Corpuscular Hemoglobin Concent 33.4, Red Cell Distribution Width 11.6, Platelet Count 258, Mean Platelet Volume 9.7, Neutrophils (%) (Auto) 68.4, Lymphocytes (%) (Auto) 25.0, Monocytes (%) (Auto) 5.0, Eosinophils (%) (Auto) 0.5, Basophils (%) (Auto ) 1.0, Sodium Level 139, Potassium Level 4.2, Chloride Level 106, Carbon Dioxide Level 24, Anion Gap 9, Blood Urea Nitrogen 13, Creatinine 1.0, Estimat Glomerular Filtration Rate > 60, Glucose Level 114H, Calcium Level 9.5 Height (Feet): 5 Height (Inches): 6.00 Weight (Pounds): 215 Cardiovascular: normal rate Abdomen: soft Morenita Shaw MD Mar 27, 2017 20:55
[2017-03-27] MEDS ORDERED: Promethazine/Codeine 5ml UD ORAL PRN (21:00)
[2017-03-27] MEDS ORDERED: guaiFENesin ER 600mg tab ORAL PRN (21:00)
[2017-03-28] VITALS: BP 153/84
[2017-03-28] MEDS ORDERED: Albuterol/Ipratropium 3ml neb HHN PRN
[2017-03-28 04:00] VITALS: BP 130/77
[2017-03-28 08:00] VITALS: BP 140/79
[2017-03-28] MEDS: Aspirin Baby 81mg ORAL SCH (08:16)
[2017-03-28] MEDS: Acetaminophen 500mg (ES) tab ORAL PRN ×2 (08:16→17:40)
[2017-03-28] MEDS: Lisinopril 10mg tab ORAL SCH (08:16)
[2017-03-28] MEDS: Levofloxacin 500mg tab ORAL SCH (08:17)
[2017-03-28] MEDS: Ascorbic Acid 500mg tab ORAL SCH (08:17)
[2017-03-28] MEDS: Docusate 100mg cap ORAL SCH ×2 (08:17→17:36)
[2017-03-28] MEDS ORDERED: Lisinopril 10mg tab ORAL SCH (09:00)
[2017-03-28] MEDS: Flonase Nasal Inhaler 16gm NASAL SCH (11:07)
[2017-03-28 12:15] VITALS: BP 138/68
--- NOTE | 2017-03-28 12:58 | Nephrology Progress Note ---
Assessment/Plan Problem List: (1) HTN (hypertension), malignant (2) Acute left cerebellar ischemic stroke (3) Hyperlipidemia Assessment IMP: (1) Acute left cerebellar ischemic stroke ( MRI: Acute nonhemorrhagic left cerebellar CVA.) (2) HTN (hypertension), malignant (3) Hyperlipidemia Plan Plan; BP meds to keep BP around 140 syst for now- Statins- Per Neuro Subjective ROS Limited/Unobtainable: No Constitutional: Reports: malaise Objective Objective Last 24 Hour Vital Signs Date Time Temp Pulse Resp B/P (MAP) Pulse Ox O2 Delivery O2 Flow Rate FiO2 03/28/17 12:15 98.6 73 21 138/68 97 Room Air 03/28/17 09:15 97.9 03/28/17 08:16 140/79 03/28/17 08:00 98.2 79 20 140/79 97 03/28/17 07:48 63 16 Room Air 03/28/17 04:00 97.9 61 20 130/77 98 03/28/17 00:00 97.7 62 20 153/84 96 03/27/17 21:00 98.1 65 20 151/52 97 03/27/17 20:08 70 18 Room Air 03/27/17 20:00 98.4 72 21 154/79 99 Room Air 03/27/17 16:00 79 03/27/17 16:00 96.9 79 18 129/70 100 Room Air 03/27/17 14:00 94 Intake and Output 03/27/17 03/28/17 19:00 07:00 Intake Total 756 ml Balance 756 ml Intake Oral 756 ml # Voids 1 3 Laboratory Tests 03/27/17 15:10: White Blood Count 10.1, Red Blood Count 5.34, Hemoglobin 15.6, Hematocrit 46.7, Mean Corpuscular Volume 87, Mean Corpuscular Hemoglobin 29.2, Mean Corpuscular Hemoglobin Concent 33.4, Red Cell Distribution Width 11.6, Platelet Count 258, Mean Platelet Volume 9.7, Neutrophils (%) (Auto) 68.4, Lymphocytes (%) (Auto) 25.0, Monocytes (%) (Auto) 5.0, Eosinophils (%) (Auto) 0.5, Basophils (%) (Auto ) 1.0, Sodium Level 139, Potassium Level 4.2, Chloride Level 106, Carbon Dioxide Level 24, Anion Gap 9, Blood Urea Nitrogen 13, Creatinine 1.0, Estimat Glomerular Filtration Rate > 60, Glucose Level 114H, Calcium Level 9.5 Height (Feet): 5 Height (Inches): 6.00 Weight (Pounds): 215 General Appearance: no apparent distress Objective no change KATHERINE COOPER Mar 28, 2017 12:58
[2017-03-28] MEDS: Meclizine 25mg tab ORAL PRN (15:31)
--- NOTE | 2017-03-28 16:00 | General Progress Note ---
Assessment/Plan Problem List: (1) Vomiting ICD Codes: R11.10 - Vomiting, unspecified SNOMED: 347703164 Qualifiers: Qualified Codes: R11.14 - Bilious vomiting (2) Vertigo ICD Codes: R42 - Dizziness and giddiness SNOMED: 314686470 (3) HTN (hypertension), malignant ICD Codes: I10 - Essential (primary) hypertension SNOMED: 00686193 Status: progressing Assessment/Plan afebrile off balance acute cva Subjective ROS Limited/Unobtainable: Yes Allergies: Coded Allergies: No Known Allergies (Unverified , 03/24/17) Subjective headache Objective Last 24 Hour Vital Signs Date Time Temp Pulse Resp B/P (MAP) Pulse Ox O2 Delivery O2 Flow Rate FiO2 03/28/17 12:15 98.6 73 21 138/68 97 Room Air 03/28/17 09:15 97.9 03/28/17 08:16 140/79 03/28/17 08:00 98.2 79 20 140/79 97 03/28/17 07:48 63 16 Room Air 03/28/17 04:00 97.9 61 20 130/77 98 03/28/17 00:00 97.7 62 20 153/84 96 03/27/17 21:00 98.1 65 20 151/52 97 03/27/17 20:08 70 18 Room Air 03/27/17 20:00 98.4 72 21 154/79 99 Room Air Intake and Output 03/27/17 03/28/17 19:00 07:00 Intake Total 756 ml Balance 756 ml Intake Oral 756 ml # Voids 1 3 Height (Feet): 5 Height (Inches): 6.00 Weight (Pounds): 215 Cardiovascular: regular rhythm Respiratory/Chest: lungs clear Abdomen: soft Morenita Shaw MD Mar 28, 2017 16:00
[2017-03-28 16:13] VITALS: BP 150/95
[2017-03-28 20:00] VITALS: BP 142/84
[2017-03-29] VITALS: BP 124/83
[2017-03-29 04:00] VITALS: BP 124/68
[2017-03-29 08:00] VITALS: BP 129/84
[2017-03-29] MEDS: Ascorbic Acid 500mg tab ORAL SCH (08:42)
[2017-03-29] MEDS: Meclizine 25mg tab ORAL PRN (08:42)
[2017-03-29] MEDS: Levofloxacin 500mg tab ORAL SCH (08:42)
[2017-03-29] MEDS: Docusate 100mg cap ORAL SCH ×2 (08:42→17:28)
[2017-03-29] MEDS: Aspirin Baby 81mg ORAL SCH (08:42)
[2017-03-29] MEDS: Flonase Nasal Inhaler 16gm NASAL SCH (08:44)
[2017-03-29] MEDS: Lisinopril 10mg tab ORAL SCH (08:46)
--- NOTE | 2017-03-29 12:15 | Nephrology Progress Note ---
Assessment/Plan Problem List: (1) HTN (hypertension), malignant (2) Acute left cerebellar ischemic stroke (3) Hyperlipidemia Assessment IMP: (1) Acute left cerebellar ischemic stroke ( MRI: Acute nonhemorrhagic left cerebellar CVA.) (2) HTN (hypertension), malignant (3) Hyperlipidemia Plan Plan; BP meds to keep BP around 140 syst for now- Statins- Per Neuro Subjective ROS Limited/Unobtainable: No Objective Objective Last 24 Hour Vital Signs Date Time Temp Pulse Resp B/P (MAP) Pulse Ox O2 Delivery O2 Flow Rate FiO2 03/29/17 08:46 129/84 03/29/17 08:00 98.0 78 18 129/84 99 Room Air 03/29/17 07:57 80 18 Room Air 03/29/17 04:00 97.1 65 16 124/68 100 Room Air 03/29/17 00:06 87 18 Room Air 03/29/17 00:00 97.8 72 16 124/83 98 Room Air 03/28/17 20:00 98.1 68 16 142/84 98 Room Air 03/28/17 16:13 97.7 78 22 150/95 97 Room Air Intake and Output 03/28/17 03/29/17 19:00 07:00 Intake Total 960 ml 520 ml Balance 960 ml 520 ml Intake Oral 960 ml 520 ml # Voids 3 2 Height (Feet): 5 Height (Inches): 6.00 Weight (Pounds): 215 General Appearance: no apparent distress Objective no change KATHERINE COOPER Mar 29, 2017 12:15
[2017-03-29 16:15] VITALS: BP 147/81
[2017-03-29 20:00] VITALS: BP 139/87
[2017-03-29] MEDS: Acetaminophen 500mg (ES) tab ORAL PRN (20:17)
--- NOTE | 2017-03-29 22:37 | General Progress Note ---
Assessment/Plan Problem List: (1) Vomiting ICD Codes: R11.10 - Vomiting, unspecified SNOMED: 690370655 Qualifiers: Qualified Codes: R11.14 - Bilious vomiting (2) Vertigo ICD Codes: R42 - Dizziness and giddiness SNOMED: 130742085 (3) HTN (hypertension), malignant ICD Codes: I10 - Essential (primary) hypertension SNOMED: 43815143 Status: progressing Assessment/Plan dc in am cleared by neurology as well acute cva Subjective Allergies: Coded Allergies: No Known Allergies (Unverified , 03/24/17) Subjective headache Objective Last 24 Hour Vital Signs Date Time Temp Pulse Resp B/P (MAP) Pulse Ox O2 Delivery O2 Flow Rate FiO2 03/29/17 21:25 76 16 Room Air 21 03/29/17 20:00 98.1 72 16 139/87 98 Room Air 03/29/17 16:15 97.7 65 21 147/81 99 Room Air 03/29/17 08:46 129/84 03/29/17 08:00 98.0 78 18 129/84 99 Room Air 03/29/17 07:57 80 18 Room Air 03/29/17 04:00 97.1 65 16 124/68 100 Room Air 03/29/17 00:06 87 18 Room Air 03/29/17 00:00 97.8 72 16 124/83 98 Room Air Intake and Output 03/28/17 03/29/17 19:00 07:00 Intake Total 960 ml 520 ml Balance 960 ml 520 ml Intake Oral 960 ml 520 ml # Voids 3 2 Height (Feet): 5 Height (Inches): 6.00 Weight (Pounds): 215 Respiratory/Chest: lungs clear Morenita Shaw MD Mar 29, 2017 22:37
[2017-03-30] VITALS: BP 128/85
[2017-03-30 04:00] VITALS: BP 124/83
[2017-03-30 08:00] VITALS: BP 153/94
[2017-03-30] MEDS: Flonase Nasal Inhaler 16gm NASAL SCH (09:00)
[2017-03-30] MEDS: Docusate 100mg cap ORAL SCH (09:32)
[2017-03-30] MEDS: Lisinopril 10mg tab ORAL SCH (09:32)
[2017-03-30] MEDS: Aspirin Baby 81mg ORAL SCH (09:33)
[2017-03-30] MEDS: Levofloxacin 500mg tab ORAL SCH (09:33)
[2017-03-30] MEDS: Ascorbic Acid 500mg tab ORAL SCH (09:33)
[2017-03-30] MEDS ORDERED: ASPIRIN-LOW81 MG ORAL (10:57)
[2017-03-30 12:00] VITALS: BP 138/90
--- NOTE | 2017-03-30 15:15 | Nephrology Progress Note ---
Assessment/Plan Problem List: (1) HTN (hypertension), malignant (2) Acute left cerebellar ischemic stroke (3) Hyperlipidemia Assessment IMP: (1) Acute left cerebellar ischemic stroke ( MRI: Acute nonhemorrhagic left cerebellar CVA.) (2) HTN (hypertension), malignant (3) Hyperlipidemia Plan Plan; BP meds to keep BP around 140 syst for now- Statins- Per Neuro Subjective ROS Limited/Unobtainable: No Interval Events/Complaints seen at 10 am Objective Objective Last 24 Hour Vital Signs Date Time Temp Pulse Resp B/P (MAP) Pulse Ox O2 Delivery O2 Flow Rate FiO2 03/30/17 12:00 97.8 81 18 138/90 100 Room Air 03/30/17 09:32 153/94 03/30/17 08:00 97.9 72 18 153/94 100 Room Air 03/30/17 07:45 74 18 Room Air 21 03/30/17 04:00 98.1 62 19 124/83 99 03/30/17 00:00 98.0 70 16 128/85 98 Room Air 03/29/17 21:25 76 16 Room Air 21 03/29/17 20:00 98.1 72 16 139/87 98 Room Air 03/29/17 16:15 97.7 65 21 147/81 99 Room Air Intake and Output 03/29/17 03/30/17 19:00 07:00 Intake Total 480 ml Balance 480 ml Intake Oral 480 ml # Voids 3 # Bowel Movements 1 Height (Feet): 5 Height (Inches): 6.00 Weight (Pounds): 215 General Appearance: no apparent distress Objective no change KATHERINE COOPER Mar 30, 2017 15:15
[2017-03-31] MEDS ORDERED: LIPITOR10 MG ORAL (11:40)
[2017-03-31] MEDS ORDERED: LISINOPRIL20 MG ORAL (11:40)
[2017-03-31] MEDS ORDERED: COLACE100 MG ORAL (11:40)
[2017-03-31] MEDS ORDERED: PLAVIX75 MG ORAL (11:40)
--- NOTE | 2017-03-31 11:40 | Discharge Summary ---
Discharge Summary Hospital Course Date of Admission Mar 24, 2017 at 19:29 Date of Discharge Mar 30, 2017 at 14:34 Admitting Diagnosis r/o cva, vertigo HPI Burke Palomino is a 57 year old male who was admitted on Mar 24, 2017 at 19:29 for Rule Out Cerebral Vascular Accident, Vertigo Hospital Course dc summary #[id number] Discharge Medications New Medications: Atorvastatin Calcium* (Lipitor*) 10 Mg Tablet 10 MG ORAL BEDTIME, #30 TAB Clopidogrel Bisulfate* (Plavix*) 75 Mg Tablet 75 MG ORAL DAILY, #30 TAB Docusate Sodium* (Colace*) 100 Mg Capsule 100 MG ORAL DAILY, #30 CAP Lisinopril (Lisinopril*) 20 Mg Tablet 10 MG ORAL DAILY, #30 TAB Continued Medications: Aspirin (Aspirin EC) 81 Mg Tablet.dr 81 MG ORAL DAILY, TAB Discharge Condition Upon Discharge: stable Discharge Disposition Patient was discharged to Home (01) Discharge Diagnoses: Discharge Instructions Discharge Instructions Special Instructions I have been assigned to complete a D/C Summary on this account. I was not involved in the patient management Anna Castañeda NP ([facility]te[place]) Mar 31, 2017 11:40
--- NOTE | 2017-03-31 16:00 | Discharge Summary 2 SIG ---
DATE OF ADMISSION: 03/24/2017 DATE OF DISCHARGE: 03/30/2017 REASON FOR ADMISSION: 57-year-old male with a history of hypertension, presented to emergency department with dizziness, nausea, and protracted vomiting as well as ringing in both ears. The patient reported feeling nauseous and diaphoretic. EKG in the field revealed sinus rhythm with no acute changes. The patient with a history of hypertension, but was noncompliant with his medications. He denied chest pain, fever, cough, dyspnea, or rashes. Denied history of diabetes. Never felt this way before. Upon evaluation in the emergency department, blood pressure-182/100, otherwise, vital signs were stable. Mild leukocytosis, WBC -11.5. Troponin negative. EKG revealed normal sinus rhythm. No acute ischemic changes. Glucose-226. ProBNP- 35. Chest x-ray revealed no acute cardiopulmonary pathology. CT of the head revealed no acute intracranial pathology. The patient was admitted with vertigo, ataxia, hyperglycemia, malignant hypertension. HOSPITAL COURSE: The patient was admitted. Neurology consult was requested. MRI of the brain was done and revealed acute ischemic left cerebellar CVA. The patient was started on aspirin and Plavix. Lipid panel revealed elevated total cholesterol 243 and elevated LDL of 175. Statin was added to existing regimen. Carotid duplex was essentially negative. Blood pressure was managed by pad making machine operator and optimized. Hypertensive urgency resolved prior to discharge. The patient was working with Physical and Occupational Therapists. Fall precaution were maintained. The patient was able to function independently. Hemoglobin A1c -5.9. The patient to follow up with the primary medical doctor for further management of hyperglycemia. Recommended to start anti-glycemic regimen but at this time, the patient declined. The patient was stable for discharge home. FINAL DIAGNOSES: 1. Acute ischemic left cerebellar cerebrovascular accident. 2. Malignant hypertension/hypertensive urgency. 3. Hyperlipidemia. 4. Vertigo with ataxia, likely secondary to acute cerebrovascular accident. 5. Hyperglycemia. DISCHARGE MEDICATIONS: See medication reconciliation list. DISCHARGE INSTRUCTIONS: The patient was discharged home. Follow up with the primary medical doctor. Morenita Shaw M.D. I have been assigned to dictate discharge summary on this account and I was not involved in the patient's management. Anna ShannonChaz johnson DR: VEE JOB#: [id number] CC: ARASH
--- NOTE | 2017-04-05 20:21 | Diagnostic Imaging Report ---
APPROVED REPORT CPT Code: 95586 Vascular Symptoms Unsteady Gait Comments: CVA. Doppler Spectral Velocity Analysis dICA60/21 cm/sdICA67/26 cm/s mICA81/21 cm/smICA81/27 cm/s pICA58/15 cm/spICA84/20 cm/s NPT709/27 cm/hURO848/36 cm/s dCCA96/26 cm/sdCCA84/24 cm/s pCCA99/21 cm/spCCA92/19 cm/s Vert.38/16 cm/sVert.17/10 cm/s Right ICA/CCA ratio0.8Left ICA/CCA ratio0.9 CAROTID (BILATERAL) - Imaging reveals no significant plaque within the right and left extracranial carotid arteries. The Doppler spectral flow analysis is within normal limits throughout the extracranial carotid arteries bilaterally. VERTEBRAL- The vertebral arteries are within normal limits.
--- NOTE | 2017-04-06 11:26 | Cardiology Report ---
APPROVED REPORT EXAM: Two-dimensional and M-mode echocardiogram with Doppler and color Doppler. INDICATION CVA M-Mode DIMENSIONS IVSd1.4 (0.7-1.1cm)Left Atrium (MM)3.4 (1.6-4.0cm) LVDd3.7 (3.5-5.6cm)Aortic Root3.0 (2.0-3.7cm) PWd1.2 (0.7-1.1cm)Aortic Cusp Exc.1.9 (1.5-2.0cm) LVDs2.0 (2.5-4.0cm) PWs1.1 cm Technically difficult study due to poor acoustical windows. Normal left ventricular chamber size, systolic function and wall motion. Left ventricular ejection fraction estimated to be 60-65%. Mild left ventricular hypertrophy. No evidence of pericardial or pleural effusion. All other cardiac chamber sizes are within normal limits. Focal aortic valve sclerosis with adequate cusp excursion. Normal mitral valve leaflets with normal excursion. Normal mitral annulus and aortic root. Pulmonic valve not well visualized. Normal tricuspid valve structure. IVC is normal in size and collapsible with respiration. A color flow and spectral Doppler study was performed and revealed: No aortic regurgitation. No mitral regurgitation. Mitral diastolic velocities suggest reduced left ventricular relaxation c/w diastolic dysfunction grade 1. No tricuspid regurgitation.
== END 2017-03-30 14:34 | disposition home or self-care (01) | DRG 45 ==
LOC: EDBD 15:21 → EMR 15:30 → 2E 19:29 → EDBEDREQ 21:56 → 2E 03-25 08:30 → 4E 03-27 20:49
DX: I63.542 Cerebral infarction due to unspecified occlusion or stenosis of left cerebellar artery (principal); E78.5 Hyperlipidemia, unspecified; I16.0 Hypertensive urgency; R73.9 Hyperglycemia, unspecified; R42 Dizziness and giddiness; K21.9 Gastro-esophageal reflux disease without esophagitis
CPT/HCPCS: 36415; 70450; 70551; 71045; 80048; 80053; 80061; 81001; 82550; 82607; 82746; 83036; 83735; 83880; 84100; 84443; 84484; 84550; 85025; 85610; 85730; 86140; 93005; 93306; 93880; 94664; 99285